=== PATIENT | male | born 1995 | race Caucasian/White ===

== ENCOUNTER 2017-03-29 23:08 | Emergency (ER) | payer SELFPAY ==
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
[2017-03-30] MEDS ORDERED: HYDROCOD/APAP 5/325 PREPACK#6 BTL TAKEHOME ONE (00:05)
[2017-03-30] MEDS ORDERED: CEPHALEXIN 500MG PREPACK#4 BTL TAKEHOME ONE (00:05)
[2017-03-30] MEDS ORDERED: SULFAMET/TMP DS PREPACK#2 BTL TAKEHOME ONE (00:05)
[2017-03-30 00:36] VITALS: BP 110/87; PULSE 102; RESP 18; TEMP 98.2; O2SAT 96
== END 2017-03-30 00:36 | disposition home or self-care (01) ==
PROC: 0H96XZZ Drainage of Back Skin, External Approach (ICD-10-PCS; principal; 2017-03-29)
DX: L02.212 Cutaneous abscess of back [any part, except buttock and flank] (principal); F17.200 Nicotine dependence, unspecified, uncomplicated; L73.2 Hidradenitis suppurativa